=== PATIENT | female | born 1980 | race Caucasian/White ===

== ENCOUNTER 2019-05-28 17:24 | Emergency (ER) | payer OTHER, MEDICAID, SELFPAY ==
[2019-05-28 17:49] VITALS: BP 140/98; PULSE 104; RESP 20; TEMP 36.3; O2SAT 98
--- NOTE | 2019-05-28 18:29 | ED_ITS ---
HPI - Extremity Problem General Chief complaint: Extremity Problem,Nontraumatic Stated complaint: hand pain Time Seen by Provider: 05/28/19 18:29 Source: patient Mode of arrival: Ambulatory Limitations: no limitations History of Present Illness HPI Narrative: The patient complains of bilateral hand pain and swelling, right greater than left. She has had symptoms of carpal tunnel syndrome for years. She underwent nerve conduction studies about 6 months ago. She was referred to a surgeon in [place], [place], but has since moved here. She is a food inspector. She is using ibuprofen to no avail. She is supposed to be wearing splints, she wears them at night in the help. She does not wear them during the day or at work. She has numbness in hands bilaterally, no weakness. she feels other asset administrator in her right hand is decreased. She is right-hand dominant. She has had no recent trauma. she has had no recent injuries. Related Data Previous Rx's Medication Instructions Recorded prednisone 60 mg PO DAILY 5 Days #15 tab 05/28/19 Allergies Allergy/AdvReac Type Severity Reaction Status Date / Time INGREDIENT: NKDA - NO KNOWN Allergy Unknown Uncoded 10/24/17 13:05 DRUG ALLERGIES Review of Systems Review of Systems ROS Unobtainable: All systems reviewed & are unremarkable except as noted in HPI and below Constitutional Constitutional: Denies lethargy and Reports weakness Comments: No recent trauma or illness Musculoskeletal Musculoskeletal: Reports as per HPI, Denies back pain, Denies muscle weakness, Reports numbness and Reports tingling Integumentary/Breasts Skin/Breast: Denies pruritus, Denies erythema, Denies rash and Denies wounds Neurologic Neurologic: Reports numbness, Reports tingling and Reports weakness Patient History Medical History (Updated 05/28/19 @ 18:47 by Arthur Fine MD) Bilateral carpal tunnel syndrome (Acute) Surgical History (Updated 05/28/19 @ 18:47 by Arthur Fine MD) No significant past surgical history (Acute) Social History Smoking Status: Current every day smoker Exam Initial Vital Signs Initial Vital Signs: Vital Signs Temperature 97.4 F L 05/28/19 17:49 Pulse Rate 104 H 05/28/19 17:49 Respiratory Rate 20 05/28/19 17:49 Blood Pressure 140/98 H 05/28/19 17:49 Pulse Oximetry 98 05/28/19 17:49 Const General: cooperative and well developed Nutritional Appearance: well nourished Orientation: alert, awake and oriented x3 Skin General: no rashes or lesions noted, No jaundice and No petechiae Neuro General: alert, oriented x3 and gait abnormal Other: The patient has numbness to the dorsal and volar sides of both hands. Range of motion all digits is normal. There is no atrophy. Strength in all digits is normal. she does not reveal a dermatomal distribution of the tingling/numbness. Extrem Other: Positive Tinel's both wrists. Edema to the dorsal right hand. No erythema or warmth. No motor deficits. Course Course Course Narrative: The patient was advised to wear her wrist splints as much as possible day and night. She should continue ibuprofen. She has been prescribed prednisone for 5 days and referred to Orthopedics, Dr. Corbin. Vital Signs Vital signs: Vital Signs - 8 hr 05/28/19 17:49 Temperature 97.4 F L Pulse Rate 104 H Respiratory Rate 20 Blood Pressure 140/98 H Pulse Oximetry 98 Discharge Plan Departure Patient Disposition: Home Clinical Impression: Bilateral carpal tunnel syndrome Instructions: Carpal Tunnel Syndrome Activity Restrictions/Additional Instructions: Use the ibuprofen 3-4 times daily. Prednisone 60 mg daily for 5 days. Use splints on both wrists day and night as much possible. Follow-up with Orthopedics, I will give you contact information for Dr. Corbin here in [place]. Return the ER as needed. Prescriptions: New prednisone 20 mg tablet 60 mg PO DAILY 5 Days Qty: 15 RF: 0 Referrals: Kimberly Corbin MD [Physician] - Miscellaneous,DoctorMD [Primary Care Provider] - Stand Alone Forms: Work Release Note
== END 2019-05-28 19:01 | disposition home or self-care (01) ==
PROVIDERS: Emergency Provider Emergency Medicine
DX: G56.03 Carpal tunnel syndrome, bilateral upper limbs (principal)
CPT/HCPCS: 99282

== ENCOUNTER 2019-06-22 17:12 | Emergency (ER) | payer OTHER, MEDICAID, SELFPAY ==
[2019-06-22 17:21] VITALS: BP 136/87; PULSE 92; RESP 16; TEMP 36.6; O2SAT 95; BMI 28.3
[2019-06-22] MEDS: ERYTHROMYCIN OPHTH 1 GM OINT 1 APPLIC EYE-BOTH (18:59)
[2019-06-22 19:28] VITALS: BP 134/78; PULSE 89; RESP 16; O2SAT 97
--- NOTE | 2019-06-22 20:52 | ED_ITS ---
HPI - Eye Problem <ALBERT Pillai - Last Filed: 06/22/19 21:00> General Chief complaint: Eye Problems Stated complaint: infection in eyes 4xdays Time Seen by Provider: 06/22/19 17:46 Source: patient Mode of arrival: Ambulatory Limitations: no limitations History of Present Illness HPI Narrative: The patient is a vaccinated 38-year-old female who presents with a chief complaint of an eye infection for the past 4 days. She states that she is exposed to lot of people at work. She states that she has had eye redness, drainage, wood sticking together in the morning and crusting that moved from her left eye to her right eye. She denies any contact use. She denies any visual deficit blurry vision double vision, haloing of lights. She denies any ear pain. She denies any cough, fever nausea vomiting diarrhea or abdominal pain. She states that she thinks she has pink eye. She states that her vision is normal for her. Related Data Previous Rx's Medication Instructions Recorded prednisone 20 mg tablet 20 mg PO DAILY #14 tab 06/05/19 erythromycin 1 applictn EYE-BOTH 6XD 7 Days 06/22/19 #3.5 gram Allergies Allergy/AdvReac Type Severity Reaction Status Date / Time No Known Drug Allergies Allergy Verified 06/22/19 18:36 Review of Systems <ALBERT Pillai - Last Filed: 06/22/19 21:00> Review of Systems Narrative: GENERAL: Denies chills, fatigue, malaise, fever, sweats. HEENT: See HPI RESPIRATORY: Denies dyspnea, cough, wheezing, hemoptysis, sputum. CARDIOVASCULAR: Denies chest pain, palpitations, orthopnea, edema, GASTROINTESTINAL: Denies nausea, vomiting, abdominal pain, diarrhea, constipation, melena. : Denies dysuria, frequency, incontinence, hematuria, urinary retention. MUSCULOSKELETAL: denies weakness, joint pain, or bony pain SKIN: Denies rash, skin lesions, or other NEUROLOGIC: Denies weakness, headache, numbness, change in speech, confusion, seizures, incoordination. PSYCHIATRIC: No concerning psychosocial issues. 12 point review of systems is negative except for those stated above Patient History <ALBERT Pillai - Last Filed: 06/22/19 21:00> Medical History Bilateral carpal tunnel syndrome (Acute) Surgical History No significant past surgical history (Acute) Social History Smoking Status: Current every day smoker Smoking Status: Current every day smoker Exam <ALBERT Pillai - Last Filed: 06/22/19 21:00> Narrative Exam Narrative: GENERAL: This is a well-nourished, well-developed patient, in no acute distress HEAD: Atraumatic. Normocephalic. No temporal or scalp tenderness. EYES: Pupils equal round and reactive. Extraocular motions intact. No scleral icterus. Bilateral injection and purulence drainage noted. ENT: Nose without bleeding, purulent drainage or septal hematoma. Throat without erythema, tonsillar hypertrophy or exudate. Uvula midline. Airway patent. NECK: Trachea midline. No JVD or lymphadenopathy. Supple, nontender, no meningeal signs. CARDIOVASCULAR: Regular rate and rhythm RESPIRATORY: No cough. No increased respiratory effort. No accessory muscle use. EXTREMITIES: No clubbing, cyanosis, or edema. No joint tenderness, effusion, or edema noted. BACK: Nontender without deformity or crepitance. No flank tenderness. NEURO: AOx3. SKIN: No rash or erythema. Initial Vital Signs Initial Vital Signs: Vital Signs Temperature 97.8 F 06/22/19 17:21 Pulse Rate 92 H 06/22/19 17:21 Respiratory Rate 16 06/22/19 17:21 Blood Pressure 136/87 06/22/19 17:21 Pulse Oximetry 95 06/22/19 17:21 <Ambar Blake DO - Last Filed: 06/23/19 05:59> Initial Vital Signs Initial Vital Signs: Vital Signs Temperature 97.8 F 06/22/19 17:21 Pulse Rate 92 H 06/22/19 17:21 Respiratory Rate 16 06/22/19 17:21 Blood Pressure 136/87 06/22/19 17:21 Pulse Oximetry 95 06/22/19 17:21 Course <ALBERT Pillai - Last Filed: 06/22/19 21:00> Orders Ordered: Discontinued Medications Erythromycin (Erythromycin Ophth Oint) 1 applic EYE-BOTH NOW ONE Stop: 06/22/19 18:27 Last Admin: 06/22/19 18:59 Dose: 1 applic Documented by: YASMINE Vital Signs Vital signs: Vital Signs - 8 hr 06/22/19 17:21 06/22/19 19:28 Temperature 97.8 F Pulse Rate 92 H 89 Respiratory Rate 16 16 Blood Pressure 136/87 134/78 Pulse Oximetry 95 97 <Ambar Blake DO - Last Filed: 06/23/19 05:59> Orders Ordered: Discontinued Medications Erythromycin (Erythromycin Ophth Oint) 1 applic EYE-BOTH NOW ONE Stop: 06/22/19 18:27 Last Admin: 06/22/19 18:59 Dose: 1 applic Documented by: YASMINE Vital Signs Vital signs: Vital Signs - 8 hr 06/22/19 17:21 06/22/19 19:28 Temperature 97.8 F Pulse Rate 92 H 89 Respiratory Rate 16 16 Blood Pressure 136/87 134/78 Pulse Oximetry 95 97 MDM - Eye Problem <ALBERT Pillai - Last Filed: 06/22/19 21:00> MDM Narrative Medical decision making narrative: The patient is a 38-year-old female who presents with a chief complaint of eye infection. She is concerned about ?pinkeye.Exam indicates bacterial conjunctivitis. I started her on erythromycin eye ointment. She has no complaints regarding her vision, discussed that she needs to come back immediately if she has any visual problems. Encourage PCP follow-up in the next few days. Gave contact information for [facility] staff nurse icu resource team. Patient has no questions or concerns upon discharge and states understanding of return precautions as well as follow-up care. Discharge Plan Departure Patient Disposition: Home Clinical Impression: Bacterial conjunctivitis Discharge Date/Time: 06/22/19 19:28 Instructions: DI for Conjunctivitis Activity Restrictions/Additional Instructions: I sent a prescription of erythromycin eye ointment to [facility]. Please come back to the emergency department for any acute concerns such as visual deficit Please follow-up with primary care provider. I've given you contact information for [facility] staff nurse icu resource team. I also gave you work note. Prescriptions: New erythromycin 5 mg/gram (0.5 %) ointment 1 applictn EYE-BOTH 6XD 7 Days Qty: 3.5 RF: 0 No Action prednisone 20 mg tablet 20 mg PO DAILY Qty: 14 RF: 0 Referrals: [facility] [Outside] Miscellaneous,Doctor, MD [Primary Care Provider] - Stand Alone Forms: Work Release Note
== END 2019-06-22 19:28 | disposition home or self-care (01) ==
PROVIDERS: Emergency Provider Nurse Practitioner Family
DX: H10.89 Other conjunctivitis (principal)
CPT/HCPCS: 99282